=== PATIENT | female | born 1995 | race Caucasian/White ===

== ENCOUNTER 2020-03-09 11:52 | Inpatient (IN) | payer BC, MEDICAID ==
[2020-03-09] MEDS ORDERED: Ondansetron 4 MG/2 ML SDV IVPUSH PRN (13:07)
[2020-03-09] MEDS ORDERED: Nalbuphine 10 MG/ML Syringe IVPUSH PRN (13:07)
[2020-03-09] MEDS ORDERED: Sodium Chloride 0.9% 10 ML Syringe FLUSH PRN (13:07)
[2020-03-09] MEDS ORDERED: Oxytocin/Lactated Ringers 10 UNIT/1,000 ML BAG IV SCH ×2 (13:15)
[2020-03-09] MEDS ORDERED: Cephalexin 500 MG Cap PO ONE (13:19)
[2020-03-09] MEDS: Lactated Ringers 1,000 ML IV SCH ×4 (17:26→20:26)
[2020-03-09] MEDS ORDERED: diphenhydrAMINE 50 MG/ML SDV IVPUSH PRN (18:34)
[2020-03-09] MEDS ORDERED: Bupivacaine/fentaNYL/NS 100 ML Bag EPIDUR PRN (18:34)
[2020-03-09] MEDS ORDERED: ePHEDrine 50 MG/ML SDV IVPUSH PRN (18:34)
[2020-03-09] MEDS ORDERED: fentaNYL 100 MCG/2 ML SDV EPIDUR PRN (18:34)
--- NOTE | 2020-03-09 19:10 | PCM.PREANE ---
Preanesthetic Assessment - Procedure Proposed Procedure: mani - Anesthesia/Transfusion/Family Hx Anesthesia History: Prior Anesthesia Without Reaction Family History of Anesthesia Reaction: No Transfusion History: No Prior Transfusion(s) - Review of Systems General: No Symptoms Pulmonary: No Symptoms Cardiovascular: No Symptoms Gastrointestinal: No Symptoms, Vomiting (this am- better now) Other: Reports: None - Physical Assessment Vital Signs: Last Vital Signs Temp 98.9 F 03/09/20 12:00 Pulse 106 H 03/09/20 12:00 Resp 18 03/09/20 12:00 BP 122/80 03/09/20 12:00 Pulse Ox 96 03/09/20 12:00 Height: 5 ft 5 in Weight: 90.718 kg ASA Class: 2 Mental Status: Alert & Oriented x3 Airway Class: Mallampati = 1 Dentition: Reports: Normal Dentition Thyro-Mental Finger Breadths: 3 Mouth Opening Finger Breadths: 3 ROM/Head Extension: Full Lungs: Clear to Auscultation, Normal Respiratory Effort Cardiovascular: Regular Rate, Regular Rhythm, No Murmurs - Lab Values: Laboratory Last Values WBC 9.39 K/mm3 (3.98-10.04) 03/09/20 13:39 RBC 3.59 M/mm3 (3.98-5.22) L 03/09/20 13:39 Hgb 10.1 gm/dl (11.2-15.7) L 03/09/20 13:39 Hct 31.1 % (34.1-44.9) L 03/09/20 13:39 MCV 86.6 fl (79.4-94.8) 03/09/20 13:39 MCH 28.1 pg (25.6-32.2) 03/09/20 13:39 MCHC 32.5 g/dl (32.2-35.5) 03/09/20 13:39 RDW Std Deviation 39.5 fL (36.4-46.3) 03/09/20 13:39 Plt Count 174 K/mm3 (182-369) L 03/09/20 13:39 MPV 9.7 fl (9.4-12.3) 03/09/20 13:39 Neut % (Auto) 69.3 % (34.0-71.1) 03/09/20 13:39 Lymph % (Auto) 21.0 % (19.3-51.7) 03/09/20 13:39 [place] % (Auto) 8.8 % (4.7-12.5) 03/09/20 13:39 Eos % (Auto) 0.4 (0.7-5.8) L 03/09/20 13:39 Baso % (Auto) 0.1 % (0.1-1.2) 03/09/20 13:39 Neut # (Auto) 6.50 K/mm3 (1.56-6.13) H 03/09/20 13:39 Lymph # (Auto) 1.97 K/mm3 (1.18-3.74) 03/09/20 13:39 [place] # (Auto) 0.83 K/mm3 (0.24-0.36) H 03/09/20 13:39 Eos # (Auto) 0.04 K/mm3 (0.04-0.36) 03/09/20 13:39 Baso # (Auto) 0.01 K/mm3 (0.01-0.08) 03/09/20 13:39 Urine Color Yellow (Yellow) 03/09/20 12:00 Urine Appearance Clear (Clear) 03/09/20 12:00 Urine pH 7.5 (5.0-8.0) 03/09/20 12:00 Ur Specific [place] 1.020 (1.005-1.030) 03/09/20 12:00 Urine Protein Negative (Negative) 03/09/20 12:00 Urine Glucose (UA) Negative (Negative) 03/09/20 12:00 Urine Ketones Negative (Negative) 03/09/20 12:00 Urine Occult Blood Negative (Negative) 03/09/20 12:00 Urine Nitrite Negative (Negative) 03/09/20 12:00 Urine Bilirubin Negative (Negative) 03/09/20 12:00 Urine Urobilinogen 0.2 (0.2-1.0) 03/09/20 12:00 Ur Leukocyte Esterase Trace (Negative) H 03/09/20 12:00 Urine RBC 0-5 /hpf (0-5) 03/09/20 12:00 Urine WBC 5-10 /hpf (0-5) H 03/09/20 12:00 Ur Squamous Epith Cells 0-5 /hpf (0-5) 03/09/20 12:00 Amorphous Sediment Many /hpf (NOT SEEN) H 03/09/20 12:00 Urine Bacteria Moderate /hpf (FEW) H 03/09/20 12:00 Urine Mucus Few /hpf (FEW) 03/09/20 12:00 - Allergies Allergies/Adverse Reactions: Allergies Allergy/AdvReac Type Severity Reaction Status Date / Time metoclopramide [From Reglan] Allergy Severe Difficulty Verified 03/09/20 15:53 Breathing - Blood Blood Available: No - Acknowledgements Anesthesia Type Planned: Epidural Pt an Appropriate Candidate for the Planned Anesthesia: Yes Alternatives and Risks of Anesthesia Discussed w Pt/Guardian: Yes Pt/Guardian Understands and Agrees with Anesthesia Plan: Yes PreAnesthesia Questionnaire Cardiovascular History: Reports: Other (See Below) Other Cardiovascular History: Tachycardia-episodes with second trimester- had holter and was ok per patient Respiratory History: Reports: Asthma (as a child) Gastrointestinal History: Reports: GERD Genitourinary History: Reports: UTI, Recurrent 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 OB/BYN History: demise in 2018 Psychiatric History: Reports: Anxiety, Depression, Suicide Attempt Other Psychiatric History: All 3 during teenage years, pt denies any anxiety/ depression and also denies suicidal ideation - Past Surgical History HEENT Surgical History: Reports: Oral Surgery Cardiovascular Surgical History: Reports: None - SUBSTANCE USE Smoking Status *Q: Former Smoker Tobacco Use Within Last Twelve Months: Cigarettes Second Hand Smoke Exposure: Yes Recreational Drug Use History: No - HOME MEDS Home Medications: Home Meds Esomeprazole Magnesium [Nexium] 20 mg PO DAILY 02/27/20 [History] Promethazine [Phenergan] 25 mg PO Q6H 03/09/20 [History] - CURRENT (IN HOUSE) MEDS Current Meds: Current Medications Diphenhydramine HCl (Benadryl) 25 mg IVPUSH Q6H PRN PRN Reason: pruritis Ephedrine Sulfate (Ephedrine Sulfate) 5 mg IVPUSH ASDIRECTED PRN PRN Reason: Hypotension Fentanyl (Sublimaze) 100 mcg EPIDUR Q3H PRN PRN Reason: Pain Last Admin: 03/09/20 18:44 Dose: 100 mcg Fentanyl/Bupivacaine HCl (Fentanyl/Bupivacaine/Ns 2 Mcg-0.125% 100 Ml) 100 ml EPIDUR ASDIRECTED PRN PRN Reason: Pain Last Admin: 03/09/20 18:44 Dose: 100 ml Lactated Ringer's (Ringers, Lactated) 1,000 mls @ 100 mls/hr IV ASDIRECTED ALMA Last Admin: 03/09/20 18:45 Dose: 100 mls/hr Oxytocin/Lactated Ringer's (Pitocin In Lr 10 Units/1,000 Ml) 10 unit in 1,000 mls @ 12 mls/hr IV TITRATE ALMA; Protocol Oxytocin/Lactated Ringer's (Pitocin In Lr 10 Units/1,000 Ml) 10 unit in 1,000 mls @ 100 mls/hr IV .CONTINUOUS ALMA Nalbuphine HCl (Nubain) 10 mg IVPUSH Q2H PRN PRN Reason: Pain Ondansetron HCl (Zofran) 4 mg IVPUSH Q4H PRN PRN Reason: Nausea/Vomiting Sodium Chloride (Saline Flush) 10 ml FLUSH ASDIRECTED PRN PRN Reason: Keep Vein Open Discontinued Medications Cephalexin (Keflex) 500 mg PO ONETIME ONE Stop: 03/09/20 13:20 Last Admin: 03/09/20 15:08 Dose: 500 mg
--- NOTE | 2020-03-09 20:35 | PCM.LDHP ---
L&D History of Present Illness - General Date of Service: 03/09/20 Admit Problem/Dx: Patient Status Order with Admit Dx/Problem 03/09/20 13:05 Patient Status [ADT] Routine 03/09/20 13:08 Patient Status [ADT] Routine Admission Diagnosis/Problem Admission Diagnosis/Problem - History of Present Illness Introduction:: 25 year old at 38w3 here in labor. Pain Score: 3 - Related Data Allergies/Adverse Reactions: Allergies Allergy/AdvReac Type Severity Reaction Status Date / Time metoclopramide [From Reglan] Allergy Severe Difficulty Verified 03/09/20 15:53 Breathing Home Medications: Home Meds Esomeprazole Magnesium [Nexium] 20 mg PO DAILY 02/27/20 [History] Promethazine [Phenergan] 25 mg PO Q6H 03/09/20 [History] Past Medical History Cardiovascular History: Reports: Other (See Below) Other Cardiovascular History: Tachycardia-episodes with second trimester- had holter and was ok per patient Respiratory History: Reports: Asthma (as a child) Gastrointestinal History: Reports: GERD Genitourinary History: Reports: UTI, Recurrent 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 OB/BYN History: demise in 2018 Psychiatric History: Reports: Anxiety, Depression, Suicide Attempt Other Psychiatric History: All 3 during teenage years, pt denies any anxiety/ depression and also denies suicidal ideation - Past Surgical History HEENT Surgical History: Reports: Oral Surgery Cardiovascular Surgical History: Reports: None Social & Family History - Family History Family Medical History: Noncontributory - Tobacco Use Smoking Status *Q: Former Smoker Years of Tobacco use: 2 Used Tobacco, but Quit: Yes Month/Year Tobacco Last Used: 06/2019 Second Hand Smoke Exposure: Yes - Recreational Drug Use Recreational Drug Use: No H&P Review of Systems - Review of Systems: Review Of Systems: See Below General: Reports: No Symptoms HEENT: Reports: No Symptoms Pulmonary: Reports: No Symptoms Cardiovascular: Reports: No Symptoms Gastrointestinal: Reports: No Symptoms Genitourinary: Reports: No Symptoms Musculoskeletal: Reports: No Symptoms Skin: Reports: No Symptoms Psychiatric: Reports: No Symptoms Neurological: Reports: No Symptoms Hematologic/Lymphatic: Reports: No Symptoms Immunologic: Reports: No Symptoms L&D Exam - Exam Exam: See Below - Vital Signs Vital Signs: Last Vital Signs Temp 37.2 C 03/09/20 12:00 Pulse 106 H 03/09/20 12:00 Resp 18 03/09/20 12:00 BP 122/80 03/09/20 12:00 Pulse Ox 96 03/09/20 12:00 Weight: 90.718 kg - OB Specific Contraction Intensity: Moderate to Strong Movement: Active Heart Tones: Present Heart Rate (FHR) Variability: Moderate (6-25 bmp) Presentation: Vertex - Becerra Score Becerra Score Cervix Position: Anterior Becerra Score Consistency: Soft Becerra Score Effacement: 51-70% Becerra Score Dilation: 3-4 cm Becerra Score Infant's Station: -2 Becerra Score Total: 9 - Exam General: Alert, Oriented HEENT: PERRLA, Conjunctiva Clear, EACs Clear, EOMI, Hearing Intact, Mucosa Moist & [place], Nares Patent, Normal Nasal Septum, Posterior Pharynx Clear, TMs Clear Neck: Supple, Trachea Midline Lungs: Clear to Auscultation, Normal Respiratory Effort Cardiovascular: Regular Rate, Regular Rhythm GI/Abdominal Exam: Normal Bowel Sounds, Soft, Non-Tender, No Organomegaly, No Distention, No Abnormal Bruit, No Mass, Pelvis Stable Rectal Exam: Normal Exam, Normal Rectal Tone Back Exam: Normal Inspection, Full Range of Motion Extremities: Normal Inspection, Normal Range of Motion, Non-Tender, No Pedal Edema, Normal Capillary Refill Skin: Warm, Dry, Intact Neurological: Cranial Nerves Intact, Reflexes Equal Bilateral Psychiatric: Alert, Normal Affect, Normal Mood - Patient Data Lab Results Last 24 hrs: Laboratory Results - last 24 hr 03/09/20 03/09/20 Range/Units 12:00 13:39 WBC 9.39 (3.98-10.04) K/mm3 RBC 3.59 L (3.98-5.22) M/mm3 Hgb 10.1 L (11.2-15.7) gm/dl Hct 31.1 L (34.1-44.9) % MCV 86.6 (79.4-94.8) fl MCH 28.1 (25.6-32.2) pg MCHC 32.5 (32.2-35.5) g/dl RDW Std Deviation 39.5 (36.4-46.3) fL Plt Count 174 L (182-369) K/mm3 MPV 9.7 (9.4-12.3) fl Neut % (Auto) 69.3 (34.0-71.1) % Lymph % (Auto) 21.0 (19.3-51.7) % [place] % (Auto) 8.8 (4.7-12.5) % Eos % (Auto) 0.4 L (0.7-5.8) Baso % (Auto) 0.1 (0.1-1.2) % Neut # (Auto) 6.50 H (1.56-6.13) K/mm3 Lymph # (Auto) 1.97 (1.18-3.74) K/mm3 [place] # (Auto) 0.83 H (0.24-0.36) K/mm3 Eos # (Auto) 0.04 (0.04-0.36) K/mm3 Baso # (Auto) 0.01 (0.01-0.08) K/mm3 Urine Color Yellow (Yellow) Urine Appearance Clear (Clear) Urine pH 7.5 (5.0-8.0) Ur Specific [place] 1.020 (1.005-1.030) Urine Protein Negative (Negative) Urine Glucose (UA) Negative (Negative) Urine Ketones Negative (Negative) Urine Occult Blood Negative (Negative) Urine Nitrite Negative (Negative) Urine Bilirubin Negative (Negative) Urine Urobilinogen 0.2 (0.2-1.0) Ur Leukocyte Esterase Trace H (Negative) Urine RBC 0-5 (0-5) /hpf Urine WBC 5-10 H (0-5) /hpf Ur Squamous Epith Cells 0-5 (0-5) /hpf Amorphous Sediment Many H (NOT SEEN) /hpf Urine Bacteria Moderate H (FEW) /hpf Urine Mucus Few (FEW) /hpf Result Diagrams: 03/09/20 13:39 Problem List Initiated/Reviewed/Updated: Yes Orders Last 24hrs: Active Orders 24 hr Category Date Time Status Patient Status [ADT] Routine ADT 03/09/20 13:08 Active Activity as Tolerated [RC] PFP Care 03/09/20 13:07 Active Communication Order [RC] ASDIRECTED Care 03/09/20 13:07 Active Notify Provider [RC] ASDIRECTED Care 03/09/20 18:34 Active Notify Provider [RC] PFP Care 03/09/20 13:07 Active Notify Provider [RC] PRN Care 03/09/20 13:07 Active Peripheral IV Care [RC] . DIRECTED Care 03/09/20 13:08 Active Pump Management, Intrathecal [RC] ASDIRECTED Care 03/09/20 13:13 Active Up ad Ellen [RC] ASDIRECTED Care 03/09/20 12:02 Active Urinary Catheter Assessment [RC] ASDIRECTED Care 03/09/20 13:07 Active Vital Signs [RC] PER UNIT ROUTINE Care 03/09/20 12:00 Active Vital Signs [RC] PER UNIT ROUTINE Care 03/09/20 13:07 Active Regular Diet [DIET] Diet 03/09/20 Breakfast Active BLOOD BANK HOLD SPECIMEN [BBK] Stat Lab 03/09/20 13:07 Ordered CULTURE URINE [RM] Routine Lab 03/09/20 12:00 Received RAPID PLASMA REAGIN,RPR [CHEM] Routine Lab 03/09/20 13:39 Received Bupivacaine/fentaNYL/NS [fentaNYL/Bupivacaine/NS 2 MCG- Med 03/09/20 18:34 Active 0.125% 100 ML] 100 ml EPIDUR ASDIRECTED PRN Lactated Ringers [Ringers, Lactated] 1,000 ml Med 03/09/20 13:15 Active IV ASDIRECTED Nalbuphine [Nubain] Med 03/09/20 13:07 Active 10 mg IVPUSH Q2H PRN Ondansetron [Zofran] Med 03/09/20 13:07 Active 4 mg IVPUSH Q4H PRN Oxytocin/Lactated Ringers [Pitocin in LR 10 Units/1,000 Med 03/09/20 13:15 Active ML] 10 unit in 1,000 ml IV .CONTINUOUS Oxytocin/Lactated Ringers [Pitocin in LR 10 Units/1,000 Med 03/09/20 13:15 Active ML] 10 unit in 1,000 ml IV TITRATE Sodium Chloride 0.9% [Saline Flush] Med 03/09/20 13:07 Active 10 ml FLUSH ASDIRECTED PRN cephALEXin [Keflex] Med 03/09/20 21:00 Ordered 500 mg PO Q6HR diphenhydrAMINE [Benadryl] Med 03/09/20 18:34 Active 25 mg IVPUSH Q6H PRN ePHEDrine [ePHEDrine sulfate] Med 03/09/20 18:34 Active 5 mg IVPUSH ASDIRECTED PRN fentaNYL [Sublimaze] Med 03/09/20 18:34 Active 100 mcg EPIDUR Q3H PRN Electronic Heart Tones Ext w TOCO [WOMSER] Oth 03/09/20 13:07 Ordered Routine Electronic Heart Tones Internal [WOMSER] Per Unit Oth 03/09/20 13:07 Ordered Routine Peripheral IV Insertion Adult [OM.PC] Routine Oth 03/09/20 13:07 Ordered Resuscitation Status Routine Resus Stat 03/09/20 13:07 Ordered Medication Orders Cephalexin (Keflex) 500 mg PO Q6HR ALMA Diphenhydramine HCl (Benadryl) 25 mg IVPUSH Q6H PRN PRN Reason: pruritis Ephedrine Sulfate (Ephedrine Sulfate) 5 mg IVPUSH ASDIRECTED PRN PRN Reason: Hypotension Fentanyl (Sublimaze) 100 mcg EPIDUR Q3H PRN PRN Reason: Pain Last Admin: 03/09/20 18:44 Dose: 100 mcg Fentanyl/Bupivacaine HCl (Fentanyl/Bupivacaine/Ns 2 Mcg-0.125% 100 Ml) 100 ml EPIDUR ASDIRECTED PRN PRN Reason: Pain Last Admin: 03/09/20 18:44 Dose: 100 ml Lactated Ringer's (Ringers, Lactated) 1,000 mls @ 100 mls/hr IV ASDIRECTED ALMA Last Admin: 03/09/20 20:26 Dose: 100 mls/hr Infusion: 03/09/20 20:26 Dose: 100 mls/hr Admin: 03/09/20 19:49 Dose: 100 mls/hr Infusion: 03/09/20 19:49 Dose: 100 mls/hr Admin: 03/09/20 18:45 Dose: 100 mls/hr Infusion: 03/09/20 18:45 Dose: 100 mls/hr Admin: 03/09/20 17:26 Dose: 100 mls/hr Oxytocin/Lactated Ringer's (Pitocin In Lr 10 Units/1,000 Ml) 10 unit in 1,000 mls @ 12 mls/hr IV TITRATE ALMA; Protocol Oxytocin/Lactated Ringer's (Pitocin In Lr 10 Units/1,000 Ml) 10 unit in 1,000 mls @ 100 mls/hr IV .CONTINUOUS ALMA Nalbuphine HCl (Nubain) 10 mg IVPUSH Q2H PRN PRN Reason: Pain Ondansetron HCl (Zofran) 4 mg IVPUSH Q4H PRN PRN Reason: Nausea/Vomiting Sodium Chloride (Saline Flush) 10 ml FLUSH ASDIRECTED PRN PRN Reason: Keep Vein Open Assessment/Plan Comment:: Term labor. Desires epidural. Anticipate unless otherwise indicated.
--- NOTE | 2020-03-09 20:36 | PCM.PNLD ---
Labor Progress Note - VS & Meds Vital Signs: Last Vital Signs Temp 37.2 C 03/09/20 12:00 Pulse 106 H 03/09/20 12:00 Resp 18 03/09/20 12:00 BP 122/80 03/09/20 12:00 Pulse Ox 96 03/09/20 12:00 Active Medications: Current Medications Cephalexin (Keflex) 500 mg PO Q6HR ALMA Diphenhydramine HCl (Benadryl) 25 mg IVPUSH Q6H PRN PRN Reason: pruritis Ephedrine Sulfate (Ephedrine Sulfate) 5 mg IVPUSH ASDIRECTED PRN PRN Reason: Hypotension Fentanyl (Sublimaze) 100 mcg EPIDUR Q3H PRN PRN Reason: Pain Last Admin: 03/09/20 18:44 Dose: 100 mcg Fentanyl/Bupivacaine HCl (Fentanyl/Bupivacaine/Ns 2 Mcg-0.125% 100 Ml) 100 ml EPIDUR ASDIRECTED PRN PRN Reason: Pain Last Admin: 03/09/20 18:44 Dose: 100 ml Lactated Ringer's (Ringers, Lactated) 1,000 mls @ 100 mls/hr IV ASDIRECTED ALMA Last Admin: 03/09/20 20:26 Dose: 100 mls/hr Oxytocin/Lactated Ringer's (Pitocin In Lr 10 Units/1,000 Ml) 10 unit in 1,000 mls @ 12 mls/hr IV TITRATE ALMA; Protocol Oxytocin/Lactated Ringer's (Pitocin In Lr 10 Units/1,000 Ml) 10 unit in 1,000 mls @ 100 mls/hr IV .CONTINUOUS ALMA Nalbuphine HCl (Nubain) 10 mg IVPUSH Q2H PRN PRN Reason: Pain Ondansetron HCl (Zofran) 4 mg IVPUSH Q4H PRN PRN Reason: Nausea/Vomiting Sodium Chloride (Saline Flush) 10 ml FLUSH ASDIRECTED PRN PRN Reason: Keep Vein Open Discontinued Medications Cephalexin (Keflex) 500 mg PO ONETIME ONE Stop: 03/09/20 13:20 Last Admin: 03/09/20 15:08 Dose: 500 mg - Uterine Contractions Contraction Intensity: Moderate to Strong - Monitoring Heart Rate (FHR) Variability: Moderate (6-25 bmp) - Vaginal Exam Dilation (cm): 5 Effacement (Percent): 80 Station: -2 - Labor Progress (Free Text) Labor Progress: AROM clear fluid. Epidural in place. Anticipate
[2020-03-09] MEDS: Cephalexin 500 MG Cap PO SCH (20:51)
[2020-03-09] MEDS: Calcium Carbonate 500 MG Tab.Chew PO PRN (22:32)
[2020-03-10] MEDS ORDERED: Phenylephrine/Normal Saline 100 MCG/ML 10 ML Syringe ONE
[2020-03-10] MEDS ORDERED: ePHEDrine Sulfate/0.9% NaCl/Pf 25 MG/5 ML SYRINGE IV ONE
[2020-03-10] MEDS ORDERED: Bupivacaine 0.25% 10 ML SDV ONE
[2020-03-10] MEDS: Calcium Carbonate 500 MG Tab.Chew PO PRN (02:35)
[2020-03-10] MEDS: Cephalexin 500 MG Cap PO SCH ×4 (03:06→20:00)
[2020-03-10] MEDS ORDERED: Methylergonovine 0.2 MG/1 ML Amp ONE (03:50)
--- NOTE | 2020-03-10 04:01 | PCM.SN.2 ---
- Free Text/Narrative Note: Stage I - patient presented in active labor. Progressed to complete with AROM and pitocin augmetation. Stage II - of viable female, weight 6#13 oz, APGARS 8/9 at 332. Head delivered in controlled manner over intact perineum. Body and shoulders atraumatically. Positive cry. No lacerations. Cord clamped and cut. Baby to warmer at 1-2 minutes of life. Stage III - of intact placenta. 3vc. No laceration. EBL 500. Methergine given.
[2020-03-10] MEDS ORDERED: Benzocaine/Menthol 20%-0.5% Spray 56 GM Canister TOP PRN (04:08)
[2020-03-10] MEDS ORDERED: Hydrocortisone Acetate 25 MG Supp RECTAL PRN (04:08)
[2020-03-10] MEDS ORDERED: Methylergonovine 0.2 MG/1 ML Amp IM ONE (04:16)
[2020-03-10] MEDS: Ibuprofen 600 MG Tab PO PRN ×3 (04:44→20:00)
[2020-03-10] MEDS: Witch Hazel Medicated Pads 40/Jar TOP PRN ×2 (04:44→16:18)
[2020-03-10] MEDS: Acetaminophen 325 MG Tab PO PRN ×3 (08:26→23:38)
--- NOTE | 2020-03-10 09:04 | PCM48HPAN ---
Post Anesthesia Note - EVALUATION WITHIN 48HRS OF ANESTHETIC Vital Signs in Normal Range: Yes Patient Participated in Evaluation: Yes Respiratory Function Stable: Yes Airway Patent: Yes Cardiovascular Function Stable: Yes Hydration Status Stable: Yes Pain Control Satisfactory: Yes Nausea and Vomiting Control Satisfactory: Yes Mental Status Recovered: Yes Vital Signs: Last Vital Signs Temp 36.8 C 03/10/20 08:17 Pulse 84 03/10/20 08:17 Resp 15 03/10/20 08:17 BP 105/71 03/10/20 08:17 Pulse Ox 96 03/10/20 08:17
[2020-03-11] MEDS: Cephalexin 500 MG Cap PO SCH ×2 (03:41→11:05)
--- NOTE | 2020-03-11 08:35 | PCM.DCSUM1 ---
Discharge Summary - Hospital Course Diagnosis: Stroke: No - Discharge Data Discharge Date: 03/11/20 Discharge Disposition: Home, Self-Care 01 Condition: Good - Referral to Home Health Primary Care Physician: Mi Cordero MD - Patient Instructions Diet: Usual Diet as Tolerated Activity: No Strenuous Activities Driving: May Drive Today Showering/Bathing: May Shower Notify Provider of: Fever, Increased Pain, Swelling and Redness, Drainage, Nausea and/or Vomiting - Discharge Plan *PRESCRIPTION DRUG MONITORING PROGRAM REVIEWED*: No *COPY OF PRESCRIPTION DRUG MONITORING REPORT IN PATIENT HAILEE: No Home Medications: Home Meds Esomeprazole Magnesium [Nexium] 20 mg PO DAILY 02/27/20 [History] Promethazine [Phenergan] 25 mg PO Q6H 03/09/20 [History] Referrals: Mi Cordero MD [Primary Care Provider] - (4 weeks) - Discharge Summary/Plan Comment DC Time >30 min.: No - General Info Date of Service: 03/11/20 Functional Status: Reports: Pain Controlled - Review of Systems General: Reports: No Symptoms HEENT: Reports: No Symptoms Pulmonary: Reports: No Symptoms Cardiovascular: Reports: No Symptoms Gastrointestinal: Reports: No Symptoms Genitourinary: Reports: No Symptoms Musculoskeletal: Reports: No Symptoms Skin: Reports: No Symptoms Neurological: Reports: No Symptoms Psychiatric: Reports: No Symptoms - Patient Data Vitals - Most Recent: Last Vital Signs Temp 36.5 C 03/11/20 03:43 Pulse 78 03/11/20 03:43 Resp 14 03/11/20 03:43 BP 110/82 03/11/20 03:43 Pulse Ox 98 03/11/20 03:43 Weight - Most Recent: 90.718 kg Med Orders - Current: Current Medications Acetaminophen (Tylenol) 650 mg PO Q4H PRN PRN Reason: mild pain or fever Last Admin: 03/10/20 23:38 Dose: 650 mg Benzocaine/Menthol (Dermoplast Pain Relief [place]) 0 gm TOP ASDIRECTED PRN PRN Reason: Perineal Comfort Measure Last Admin: 03/10/20 04:44 Dose: 1 applic Cephalexin (Keflex) 500 mg PO Q6H ALMA Last Admin: 03/11/20 03:41 Dose: 500 mg Hydrocortisone Acetate (Anucort-Hc) 25 mg RECTAL BID PRN PRN Reason: Hemorrhoid pain Ibuprofen (Motrin) 600 mg PO Q6H PRN PRN Reason: Mild pain or fever Last Admin: 03/10/20 20:00 Dose: 600 mg Witch Lottie (Tucks) 1 pad TOP ASDIRECTED PRN PRN Reason: Pain Last Admin: 03/10/20 16:18 Dose: 1 applic Discontinued Medications Bupivacaine HCl (Sensorcaine-Mpf 0.25%) 10 ml .ROUTE .STK-MED ONE Stop: 03/10/20 00:01 Calcium Carbonate/Glycine (Tums) 1,000 mg PO Q2HR PRN PRN Reason: Indigestion Last Admin: 03/10/20 02:35 Dose: 1,000 mg Cephalexin (Keflex) 500 mg PO ONETIME ONE Stop: 03/09/20 13:20 Last Admin: 03/09/20 15:08 Dose: 500 mg Diphenhydramine HCl (Benadryl) 25 mg IVPUSH Q6H PRN PRN Reason: pruritis Ephedrine Sulfate (Ephedrine Sulfate) 5 mg IVPUSH ASDIRECTED PRN PRN Reason: Hypotension Ephedrine Sulfate (Ephedrine 25 Mg/5 Ml Syringe) 50 mg IV .STK-MED ONE Stop: 03/10/20 00:01 Fentanyl (Sublimaze) 100 mcg EPIDUR Q3H PRN PRN Reason: Pain Last Admin: 03/09/20 18:44 Dose: 100 mcg Fentanyl/Bupivacaine HCl (Fentanyl/Bupivacaine/Ns 2 Mcg-0.125% 100 Ml) 100 ml EPIDUR ASDIRECTED PRN PRN Reason: Pain Last Admin: 03/09/20 18:44 Dose: 100 ml Lactated Ringer's (Ringers, Lactated) 1,000 mls @ 100 mls/hr IV ASDIRECTED ALMA Last Admin: 03/09/20 20:26 Dose: 100 mls/hr Oxytocin/Lactated Ringer's (Pitocin In Lr 10 Units/1,000 Ml) 10 unit in 1,000 mls @ 12 mls/hr IV TITRATE ALMA; Protocol Last Titration: 03/10/20 03:33 Dose: 500 mls/hr Oxytocin/Lactated Ringer's (Pitocin In Lr 10 Units/1,000 Ml) 10 unit in 1,000 mls @ 100 mls/hr IV .CONTINUOUS ALMA Methylergonovine Maleate (Methergine) Confirm Administered Dose 0.2 mg .ROUTE .STK-MED ONE Stop: 03/10/20 03:51 Last Admin: 03/10/20 04:09 Dose: Not Given Methylergonovine Maleate (Methergine) 0.2 mg IM ONETIME ONE Stop: 03/10/20 04:17 Last Admin: 03/10/20 04:19 Dose: 0.2 mg Nalbuphine HCl (Nubain) 10 mg IVPUSH Q2H PRN PRN Reason: Pain Ondansetron HCl (Zofran) 4 mg IVPUSH Q4H PRN PRN Reason: Nausea/Vomiting Phenylephrine HCl (Phenylephrine In Ns 100 Mcg/Ml) 1 mg .ROUTE .STK-MED ONE Stop: 03/10/20 00:01 Sodium Chloride (Saline Flush) 10 ml FLUSH ASDIRECTED PRN PRN Reason: Keep Vein Open - Exam General: Reports: Alert, Oriented HEENT: Reports: Pupils Equal, Pupils Reactive, EOMI, Mucous Membr. Moist/[place] Neck: Reports: Supple Lungs: Reports: Clear to Auscultation, Normal Respiratory Effort Cardiovascular: Reports: Regular Rate, Regular Rhythm GI/Abdominal Exam: Normal Bowel Sounds, Soft, Non-Tender, No Organomegaly, No Distention, No Abnormal Bruit, No Mass, Pelvis Stable Back Exam: Reports: Normal Inspection, Full Range of Motion Extremities: Normal Inspection, Normal Range of Motion, Non-Tender, No Pedal Edema, Normal Capillary Refill Skin: Reports: Warm, Dry, Intact Wound/Incisions: Reports: Healing Well Neurological: Reports: No New Focal Deficit Psy/Mental Status: Reports: Alert, Normal Affect, Normal Mood
== END 2020-03-11 11:40 | disposition home or self-care (01) | DRG 560 ==
LOC: JD.OBCHECK 11:52 → JD.OB 11:54 → JD.OBCHECK 13:07 → JD.OB 13:08 → OBSVTOIN 03-10 03:41
PROVIDERS: ADMIT Obstetrics & Gynecology; ATTEND Obstetrics & Gynecology
PROC: 10E0XZZ Delivery of Products of Conception, External Approach (ICD-10-PCS; principal; 2020-03-10)
PROC: 10907ZC Drainage of Amniotic Fluid, Therapeutic from Products of Conception, Via Natural or Artificial Opening (ICD-10-PCS; 2020-03-10)
DX: O99.62 Diseases of the digestive system complicating childbirth (principal); Z3A.38 38 weeks gestation of pregnancy; Z37.0 Single live birth; K21.9 Gastro-esophageal reflux disease without esophagitis; Z87.891 Personal history of nicotine dependence
CPT/HCPCS: 36415; 51702; 59025; 59409; 81001; 85025; 86592; 87086; A9270-GY; J0171; J2210; J2370; J2590; J3010; J3490; J7120